=== PATIENT | male | born 1950 | race Caucasian/White ===

== ENCOUNTER → 2021-04-12 00:36 | Outpatient (CLI) | payer MEDICARE, BC, SELFPAY ==
[2021-04-12 23:32] LABS: SARS-CoV-2 RNA PCR Negative
== END ==
PROVIDERS: PCP Family Medicine; Visit Provider Internal Medicine Gastroenterology
DX: Z01.812 Encounter for preprocedural laboratory examination (principal); Z20.822 Contact with and (suspected) exposure to COVID-19
CPT/HCPCS: C9803; U0003; U0005

== ENCOUNTER 2021-04-15 01:23 | Day surgery (SDC) | payer MEDICARE, BC, SELFPAY ==
[2021-04-03 15:43] VITALS: BMI 31.8
[2021-04-15 07:02] VITALS: BP 153/77; PULSE 93; RESP 18; TEMP 36.2; O2SAT 99; BMI 33.3
--- NOTE | 2021-04-15 07:21 | WPDANESEPPF ---
Anes - Initial Pre Proc Eval Procedure: Operation Date: 04/15/21 08:15 Proposed Procedures p Screening Colonoscopy - Ed Cortez MD Date/Time: 04/15/21 07:21 Surgeon: Ed Cortez MD Pre Op Diagnosis: neoplasm screening Patient Data Age: 70 Gender: M Height: 1.73 m Weight: 99.3 kg Last Vital Signs Temp 36.2 C L 04/15/21 07:02 Pulse 93 04/15/21 07:02 Resp 18 04/15/21 07:02 BP 153/77 H 04/15/21 07:02 Pulse Ox 99 04/15/21 07:02 Allergies Allergy/AdvReac Type Severity Reaction Status Date / Time lisinopril Allergy Unknown cough Verified 04/15/21 07:00 Home Medications Medication Instructions Recorded Confirmed Type semaglutide 0.5 mg SUB-Q WEEKLY #9 ml 06/26/20 04/03/21 Rx blood-glucose meter #1 each 06/27/20 03/04/21 Rx blood sugar diagnostic #100 each 07/01/20 03/04/21 Rx lancets 33 gauge #100 each 07/01/20 03/04/21 Rx telmisartan 80 1 tablet PO DAILY #90 tablet 08/26/20 04/03/21 Rx mg-hydrochlorothiazide 12.5 mg tablet pen needle, diabetic 31 gauge x #200 ea 10/29/20 03/04/21 Rx 3/16 insulin detemir U-100 100 unit/mL 100 unit SUB-Q DAILY 90 Days #90 ml 12/02/20 04/03/21 Rx (3 mL) subcutaneous pen aspirin 81 mg tablet,delayed 81 mg PO DAILY 03/04/21 04/03/21 History release fluticasone propionate 50 2 spray INTRANASAL DAILY #20 ml 03/04/21 04/03/21 Rx mcg/actuation nasal spray,suspension glimepiride 4 mg tablet 8 mg PO QAM #180 tablet 03/04/21 04/03/21 Rx simvastatin 40 mg tablet 40 mg PO DAILY #90 tablet 03/05/21 04/03/21 Rx metformin 500 mg PO BID 04/03/21 04/03/21 History Patient hx anesthesia problems: none Family hx anesthesia problems: none PMFSH Past Medical History Medical History (Updated 04/14/21 @ 08:28 by Oscar Mcclain DO) Chronic kidney disease, stage 3 (moderate) Essential (primary) hypertension Mixed hyperlipidemia Type 2 diabetes mellitus with diabetic neuropathy, with long-term current use of insulin Family History Family History Mother Family history of cardiovascular disease Acute myocardial infarction Father Family history of throat cancer Other Diabetes mellitus Social History Social History (Updated 03/04/21 @ 09:00 by Radha Stevenson CMA) Second hand tobacco smoke exposure: No Alcohol intake: never Substance use: never Substance use type: does not use Living arrangements: with family Gender identity (if verbalized by the patient): Male Spiritual care concerns: No Anes - Eval Final PreProcedure Day of Procedure 04/15/21 07:21 Patient weight: obese Heart: regular rate and rhythm Lungs: clear to auscultation and normal air movement Airway: Mallampati scale class II Neurological: alert and oriented Last oral intake: >/= 8 hours ASA classification: III Emergent: no Anesthetic plan: proceed Anesthesia type and monitoring: general GIVS and standard monitoring Informed Consent: The patient's anesthetic plan and its attendant risks and benefits were discussed with the patient/family/POA. Questions were solicited and answers provided to the satisfaction of the patient/family/POA.
[2021-04-15 07:22] LABS: Glucose Point of Care 217 (65-105)
[2021-04-15] MEDS: LACTATED RINGERS 1,000 ML 150 ML IV CONT (07:27)
--- NOTE | 2021-04-15 07:51 | WPDGICN ---
Assessment and Plan Assessment and plan (1) Encounter for screening colonoscopy: Code(s): Z12.11 - Encounter for screening for malignant neoplasm of colon Status: Acute Assessment and Plan: Patient presents for screening colonoscopy. Last exam was 11 years ago. Further recommendations will be given after endoscopy. GI Consult Note Consult date/time: 04/15/21 07:51 HPI: Jean Fry is a 70 year old male presents for screening colonoscopy. Patient's last colonoscopy 11 years ago was unremarkable. Patient reports his current weight appetite bowel movements are normal. He denies abdominal pain. He has had no bleeding. Family history noncontributory. Recent stool Hemoccult negative. CBC has remained stable. Review of Systems Review of Systems: All systems reviewed & are unremarkable except as noted in HPI and below PMFSH Past Medical History Medical History (Updated 04/15/21 @ 07:52 by Ed Cortez MD) Chronic kidney disease, stage 3 (moderate) Essential (primary) hypertension Mixed hyperlipidemia Type 2 diabetes mellitus with diabetic neuropathy, with long-term current use of insulin Family History Family History Mother Family history of cardiovascular disease Acute myocardial infarction Father Family history of throat cancer Other Diabetes mellitus Social History Social History (Updated 03/04/21 @ 09:00 by Radha Stevenson CMA) Second hand tobacco smoke exposure: No Alcohol intake: never Substance use: never Substance use type: does not use Living arrangements: with family Gender identity (if verbalized by the patient): Male Spiritual care concerns: No Meds Home Medications and Allergies Home Medications Medication Instructions Recorded Confirmed Type semaglutide 0.5 mg SUB-Q WEEKLY #9 ml 06/26/20 04/03/21 Rx blood-glucose meter #1 each 06/27/20 03/04/21 Rx blood sugar diagnostic #100 each 07/01/20 03/04/21 Rx lancets 33 gauge #100 each 07/01/20 03/04/21 Rx telmisartan 80 1 tablet PO DAILY #90 tablet 08/26/20 04/03/21 Rx mg-hydrochlorothiazide 12.5 mg tablet pen needle, diabetic 31 gauge x #200 ea 10/29/20 03/04/21 Rx 3/16 insulin detemir U-100 100 unit/mL 100 unit SUB-Q DAILY 90 Days #90 ml 12/02/20 04/03/21 Rx (3 mL) subcutaneous pen aspirin 81 mg tablet,delayed 81 mg PO DAILY 03/04/21 04/03/21 History release fluticasone propionate 50 2 spray INTRANASAL DAILY #20 ml 03/04/21 04/03/21 Rx mcg/actuation nasal spray,suspension glimepiride 4 mg tablet 8 mg PO QAM #180 tablet 03/04/21 04/03/21 Rx simvastatin 40 mg tablet 40 mg PO DAILY #90 tablet 03/05/21 04/03/21 Rx metformin 500 mg PO BID 04/03/21 04/03/21 History Allergies Allergy/AdvReac Type Severity Reaction Status Date / Time lisinopril Allergy Unknown cough Verified 04/15/21 07:00 Vital Signs Vital Signs - 24 hr 04/15/21 07:02 Temperature 97.1 F L Pulse Rate 93 Respiratory Rate 18 Blood Pressure 153/77 H Pulse Oximetry 99 Exam Narrative: Exam Narrative: Physical exam reveals patient be alert. Vital signs stable. HEENT exam is unremarkable. Patient is anicteric. Lungs are clear to auscultation and percussion. Heart is without murmur or extra sounds. Abdominal exam bowel sounds are present soft nontender with no organomegaly. Digital external rectal exam is normal.
[2021-04-15 08:22] VITALS: BP 114/74; PULSE 94; RESP 16; O2SAT 99
[2021-04-15 08:32] VITALS: BP 127/97; PULSE 85; RESP 19; O2SAT 99
[2021-04-15 08:42] VITALS: BP 137/85; PULSE 87; RESP 24; O2SAT 100
== END 2021-04-15 08:53 | disposition home or self-care (01) ==
PROVIDERS: PCP Family Medicine; Visit Provider Internal Medicine Gastroenterology
PROC: 0DJD8ZZ Inspection of Lower Intestinal Tract, Via Natural or Artificial Opening Endoscopic (ICD-10-PCS; CPT 45378; principal; 2021-04-15 08:15)
DX: Z12.11 Encounter for screening for malignant neoplasm of colon (principal); D12.8 Benign neoplasm of rectum; I12.9 Hypertensive chronic kidney disease with stage 1 through stage 4 chronic kidney disease, or unspecified chronic kidney disease; N18.30 Chronic kidney disease, stage 3 unspecified; E11.22 Type 2 diabetes mellitus with diabetic chronic kidney disease; E11.42 Type 2 diabetes mellitus with diabetic polyneuropathy; E78.2 Mixed hyperlipidemia; Z79.4 Long term (current) use of insulin; Z79.84 Long term (current) use of oral hypoglycemic drugs; E66.9 Obesity, unspecified; Z68.33 Body mass index [BMI] 33.0-33.9, adult
CPT/HCPCS: 45385; 82948; 88305; J2704; J7120

== ENCOUNTER 2022-05-05 11:28 | Emergency (ER) | payer MEDICARE, BC, SELFPAY ==
[2022-05-05 11:56] VITALS: BP 132/78; PULSE 93; RESP 16; TEMP 37.1; O2SAT 99
--- NOTE | 2022-05-05 12:03 | ED.SKABFB ---
HPI - Skin/Abscess/Foreign Bdy General Chief complaint: Skin/Abscess/Foreign Body Stated complaint: Rash Time Seen by Provider: 05/05/22 12:03 Source: patient, RN notes reviewed and old records reviewed Mode of arrival: ambulatory Limitations: no limitations History of Present Illness HPI narrative: 71-year-old male presents to the [facility] with complaints of a rash from the waist up for the last 2 to 3 weeks. Describes it as a very itchy, worse at night. No new creams, ointments, lotions or detergents. Denies any facial swelling. No lip or tongue swelling. MD complaint: rash Onset (ago): week(s) (At least 2 weeks) Related Data Home Medications Medication Instructions Recorded Confirmed aspirin 81 mg tablet,delayed 81 mg PO DAILY 03/04/21 05/05/22 release Allergies Allergy/AdvReac Type Severity Reaction Status Date / Time lisinopril Allergy Unknown cough Verified 05/05/22 11:34 Review of Systems Review of Systems: All systems reviewed & are unremarkable except as noted in HPI and below Constitutional: Constitutional: Reports no additional constitutional complaints, Denies chills, Denies fever(s), Denies headache(s) and Denies weakness Eyes: Eyes: Reports no additional eye complaints and Denies change in vision ENT: Reports system reviewed and no additional complaints, except as documented, Denies dysphagia, Denies dizziness, Denies headache(s), Denies nasal congestion and Denies sore throat Cardiovascular: Cardiovascular: Reports no additional cardiovascular complaints, Denies chest pain, Denies syncope and Denies dyspnea Respiratory: Respiratory: Reports no additional respiratory complaints, Denies chest congestion, Denies cough, Denies dyspnea and Denies wheezing Gastrointestinal: Gastrointestinal: Denies dysphagia Musculoskeletal: Musculoskeletal: Reports no additional musculoskeletal complaints and Denies numbness Integumentary/Breasts: Skin/Breast: Reports as per HPI and Reports rash Neurologic: Reports system reviewed and no additional complaints, except as documented, Denies dizziness, Denies syncope, Denies headache(s), Denies focal weakness, Denies numbness and Denies weakness Psychiatric: Psychiatric: Reports no additional psychiatric complaints Allergic/Immunologic: Allergic/Immunologic: Reports no additional allergic/immunologic complaints and Denies wheezing PMFSH Past Medical History Medical History Chronic kidney disease, stage 3 (moderate) Essential (primary) hypertension Mixed hyperlipidemia Type 2 diabetes mellitus with diabetic neuropathy, with long-term current use of insulin Family History Family History Mother Family history of cardiovascular disease Acute myocardial infarction Father Family history of throat cancer Other Diabetes mellitus Social History Social History Second hand tobacco smoke exposure: No Alcohol intake: never Substance use: never Substance use type: does not use Gender identity (if verbalized by the patient): Male Spiritual care concerns: No Comments At the time of my signature, I reviewed and agree with the nursing past medical, surgical, social, and family history. There is no relevant family history pertinent to the patient complaint. Exam Const: General: healthy appearing, no acute distress and alert Nutritional Appearance: well nourished Orientation/consciousness: patient oriented x3 Limitations: no limitations HENMT: Head: normal to inspection Ears: external ears normal Eyes: Pupils: Equal, round and reactive pupils present Neck: Neck: normal visual inspection, no lymphadenopathy and no meningeal signs Chest: Chest palpation & inspection: normal inspection of the chest Resp: Effort & Inspection: normal respiratory effort Auscultation: clear to auscultati
== END 2022-05-05 12:20 | disposition home or self-care (01) ==
PROVIDERS: Emergency Provider Nurse Practitioner; PCP Physician Assistant
DX: L30.9 Dermatitis, unspecified (principal); L53.9 Erythematous condition, unspecified; I12.9 Hypertensive chronic kidney disease with stage 1 through stage 4 chronic kidney disease, or unspecified chronic kidney disease; E11.22 Type 2 diabetes mellitus with diabetic chronic kidney disease; N18.30 Chronic kidney disease, stage 3 unspecified; Z79.4 Long term (current) use of insulin; E78.2 Mixed hyperlipidemia; Z79.82 Long term (current) use of aspirin
CPT/HCPCS: 99213; G0463

== ENCOUNTER 2022-05-23 10:15 | Emergency (ER) | payer MEDICARE, BC, SELFPAY ==
[2022-05-23 10:25] VITALS: BP 135/67; PULSE 77; RESP 16; TEMP 36.3; O2SAT 100
[2022-05-23 10:54] LABS: Glucose Point of Care 121 mg/dl (65-105)
--- NOTE | 2022-05-23 10:57 | ED.NAVMDI ---
HPI - Nausea/Vomiting/Diarrhea General Chief complaint: Nausea/Vomiting/Diarrhea Stated complaint: Nausea Time Seen by Provider: 05/23/22 10:57 Source: patient Mode of arrival: ambulatory Limitations: no limitations History of Present Illness HPI Narrative: 71 yo M presents with c/o N/V, fatigue, bodyaches for 3 to 5 days. No vomiting today. States he is feeling somewhat better today. Did yardwork yesterday with his . States he is drinking lots of water. Denies headache. No ABD or back pain. Having normal BMs. Afebrile. No urinary symptoms. Has been able to eat and keep down solid food today. All systems reviewed and negative except as noted above. Related Data Home Medications Medication Instructions Recorded Confirmed aspirin 81 mg tablet,delayed 81 mg PO DAILY 03/04/21 05/05/22 release Allergies Allergy/AdvReac Type Severity Reaction Status Date / Time lisinopril Allergy Unknown cough Verified 05/05/22 11:34 Review of Systems Review of Systems: CONSTITUTIONAL: Denies fever, chills, or sweats. Reports fatigue EYES: Denies visual changes, redness, or discharge. ENT: Denies rhinorrhea, congestion, sore throat, or otalgia. CARDIOVASCULAR: Denies chest pain, palpitations, or edema. RESPIRATORY: Denies cough or dyspnea. GASTROINTESTINAL: Denies abdominal pain. Reports nausea, vomiting. Denies diarrhea. GENITOURINARY: Denies dysuria or hematuria. SKIN: Denies rash or itching. MUSCULOSKELETAL: Denies back pain, joint pain. Reports myalgia. NEUROLOGIC: Denies headache, numbness, or weakness. PSYCHIATRIC: Denies anxiety or depression. All other systems reviewed are negative, except as documented in HPI. [facility] Past Medical History Medical History Chronic kidney disease, stage 3 (moderate) Essential (primary) hypertension Mixed hyperlipidemia Type 2 diabetes mellitus with diabetic neuropathy, with long-term current use of insulin Family History Family History Mother Family history of cardiovascular disease Acute myocardial infarction Father Family history of throat cancer Other Diabetes mellitus Social History Social History Second hand tobacco smoke exposure: No Alcohol intake: never Substance use: never Substance use type: does not use Gender identity (if verbalized by the patient): Male Spiritual care concerns: No Comments At time of signature, agree with nursing past medical, surgical, social and family history. There is no relevant family history pertinent to the presenting complaint. Exam Narrative: GENERAL: This is a well-nourished, well-developed patient. Patient sitting up on exam table, does not appear in any distress, talkative. HEAD: normocephalic, atraumatic. EYES: PERRL. Sclera clear/white. Vision is grossly intact. EARS: External ears normal, auditory canals clear and without drainage, TMs normal without perforation. Hearing grossly intact. NOSE: External nose normal with no obvious nasal discharge, nares without redness, no rhinorrhea. THROAT: Mucous membranes moist, posterior pharynx clear. NECK: Neck supple, non-tender without lymphadenopathy, masses or thyromegaly. CARDIOVASCULAR: Regular rate and rhythm without murmurs, gallops, or rubs. RESPIRATORY: Clear to auscultation. Breath sounds equal bilaterally. No wheezes, rales, or rhonchi. GASTROINTESTINAL: Abdomen soft, non-tender, nondistended. Bowel sounds are active. No hepato-splenomegaly, or palpable masses. No guarding. SKIN: warm, Dry, intact with no suspicious lesions or rash, good texture and turgor. NEURO: awake, alert, and oriented to person, place and time. There were no obvious focal neurologic abnormalities. EXTREMITIES: No joint tenderness, effusion, or edema noted. Course Course Level of Care: Express Care Visit Vital Signs Vital si
--- NOTE | 2022-05-23 11:39 | PC.NURSE ---
pt had emesis 300ml. provider informed. pt denies abd pain or bloating. provider at bedside.
== END 2022-05-23 11:51 | disposition home or self-care (01) ==
PROVIDERS: Emergency Provider Nurse Practitioner Family; PCP Physician Assistant
DX: B34.9 Viral infection, unspecified (principal); Z20.822 Contact with and (suspected) exposure to COVID-19; I12.9 Hypertensive chronic kidney disease with stage 1 through stage 4 chronic kidney disease, or unspecified chronic kidney disease; E11.22 Type 2 diabetes mellitus with diabetic chronic kidney disease; N18.30 Chronic kidney disease, stage 3 unspecified; E78.2 Mixed hyperlipidemia
CPT/HCPCS: 81003; 82948; 87426; 87804; 99213; C9803; G0463

== ENCOUNTER 2022-10-29 13:11 | Outpatient (CLI) | payer MEDICARE, BC, SELFPAY | END 2022-10-29 13:12 | disposition home or self-care (01) | LOC: ANHAUDIO 13:12 | PROVIDERS: PCP Family Medicine; Visit Provider Physician Assistant | DX: H90.3 Sensorineural hearing loss, bilateral (principal) | CPT/HCPCS: 92557; 92567 ==

== ENCOUNTER 2022-11-18 09:00 | Outpatient (RCR) | payer MEDICARE, BC, SELFPAY | END 2022-11-18 23:59 | disposition home or self-care (01) | LOC: ANHAUDIO 09:00 | PROVIDERS: PCP Family Medicine; Visit Provider Family Medicine | DX: Z46.1 Encounter for fitting and adjustment of hearing aid (principal) | CPT/HCPCS: 99199; V5261 ==

== ENCOUNTER 2024-03-04 14:21 | Emergency (ER) | payer MEDICARE, BC, SELFPAY ==
[2024-03-04 14:32] VITALS: BP 162/76; PULSE 86; RESP 16; TEMP 36.6; O2SAT 98
--- NOTE | 2024-03-04 14:39 | ED.EAR ---
HPI - Ear Problem General Chief complaint: Ear Stated complaint: Right Ear Foriegn Object Time Seen by Provider: 03/04/24 14:51 Source: patient Mode of arrival: ambulatory Limitations: no limitations History of Present Illness HPI Narrative: Mr. Glo jane is a 73-year-old male patient presenting to the clinic today with complaints of the rubber tip of his hearing aid stuck in his ear. He reports that it became stuck last night he is not able to get it out. Denies any other concerns Related Data Home Medications Medication Instructions Recorded Confirmed aspirin 81 mg tablet,delayed 81 mg PO DAILY 03/04/21 12/07/23 release travoprost 0.004 % eye drops 1 drp EACH EYE 04/06/23 12/07/23 Allergies Allergy/AdvReac Type Severity Reaction Status Date / Time lisinopril Allergy Unknown cough Verified 03/04/24 14:27 Review of Systems Review of Systems: Pertinent positives per HPI. Patient denies any fever, chills, rash, headache, visual changes, dizziness, cough, runny nose, sore throat, shortness of breath, chest pain, palpitations, nausea, vomiting, diarrhea, constipation, abdominal pain, or any urinary issues. [facility] Past Medical History Medical History COVID nov 2022 Iron deficiency anemia Family History Family History Mother Family history of cardiovascular disease Acute myocardial infarction Father Family history of throat cancer Other Diabetes mellitus Social History Social History Smoking status: Never smoker Second hand tobacco smoke exposure: No Alcohol intake: never Substance use: never Substance use type: does not use Do You Feel Safe in your Home?: Yes Lack of Transportation: No Lack of Food: Never True Current Housing: I Have Housing Concerned About Future Housing: No Difficulty Paying Gas/Electric Bills: No Difficulty Paying for Meds: No Currently Unemployed: No Education: Trade/Vocational Certificate Difficulty w/ Childcare or Family Care: No Living arrangements: with family Occupation/Education: retired Gender identity (if verbalized by the patient): Male Spiritual care concerns: No Comments At the time of my signature, I reviewed and agree with the nursing past medical, surgical, social, and family history. There is no relevant family history pertinent to the patient complaint. Exam Narrative: General: Well-developed, well nourished, in no apparent distress Head: Normocephalic, atraumatic Eyes: Pupils equally round and reactive to light bilaterally, EOM intact, sclera and conjunctive clear, no discharge, lids normal Ears: TMs intact and clear, rubber tip from hearing aid stuck in the right ear canal, successfully removed using a alligator forceps, ear canals clear, no drainage, grossly hearing normal. Nose: Nares patent, no discharge, no inflammation, no sinus tenderness. Mouth: Oropharynx without lesions or masses, good dentition, MMM. Neck: Supple, trachea midline, no enlargement of anterior or posterior cervical nodes, no thyroid masses or goiter palpable. Cardio: Regular rate and rhythm, s1 and s2 normal, no murmur appreciated. Resp: Clear to auscultation bilaterally anteriorly and posteriorly, no rhonchi, rales, wheezing or rubs Course Course Emergency Course: Portions of this record may have been created with voice recognition software. Level of Care: Express Care Visit Vital Signs Vital signs: Vital Signs Temperature 36.6 C 03/04/24 14:32 Pulse Rate 86 03/04/24 14:32 Respiratory Rate 16 03/04/24 14:32 Blood Pressure 162/76 H 03/04/24 14:32 Pulse Oximetry 98 03/04/24 14:32 Oxygen Delivery Room Air 03/04/24 14:32 Temperature 36.6 C 03/04/24 14:32 Pulse Rate 86 03/04/24 14:32 Respiratory Rate 16 03/04/24 14:
== END 2024-03-04 14:44 | disposition home or self-care (01) ==
PROVIDERS: Emergency Provider Nurse Practitioner Family; PCP Family Medicine
DX: T16.1XXA Foreign body in right ear, initial encounter (principal); W44.G1XA Audio device entering into or through a natural orifice, initial encounter; Z86.16 Personal history of COVID-19; Z79.82 Long term (current) use of aspirin
CPT/HCPCS: 69200; 99212; G0463

== ENCOUNTER 2024-07-10 13:58 | Emergency (ER) | payer MEDICARE, BC, SELFPAY ==
--- NOTE | 2024-07-10 14:00 | ED.URI ---
HPI - URI/Sore Throat General Chief Complaint: Upper Respiratory Infection Stated Complaint: Cough/Sore Throat Time Seen by Provider: 07/10/24 14:16 Source: patient and RN notes reviewed Mode of arrival: ambulatory Limitations: no limitations History of Present Illness HPI Narrative: 73-year-old male presents with concern of for cough for 6 days. Reports the cough is productive and he can feel rattling in his chest. He reports he got the cough after he came back from vacation in [place]. He reports cough keeps him awake at night. Reports sweats MD elicited complaint: cough Related Data Home Medications Medication Instructions Recorded Confirmed aspirin 81 mg tablet,delayed 81 mg PO DAILY 03/04/21 07/10/24 release Allergies Allergy/AdvReac Type Severity Reaction Status Date / Time lisinopril Allergy Unknown cough Verified 07/10/24 13:59 Review of Systems Review of Systems: CONSTITUTIONAL: Denies malaise, chills, fever. Reports sweats EYES: Denies visual changes, redness, or discharge. ENT: Reports rhinorrhea, congestion, sinus pain, otalgia and sore throat. CARDIOVASCULAR: Denies chest pain, palpitations, or edema. RESPIRATORY: Reports productive cough. Denies dyspnea. GASTROINTESTINAL: Denies abdominal pain, nausea, vomiting, diarrhea SKIN: Denies rash or itching. MUSCULOSKELETAL: Denies myalgia. NEUROLOGIC: Denies headache. All systems reviewed & are unremarkable except as noted in HPI and below PMFSH Past Medical History Medical History COVID nov 2022 Iron deficiency anemia Family History Family History Mother Family history of cardiovascular disease Acute myocardial infarction Father Family history of throat cancer Other Diabetes mellitus Social History Social History Smoking status: Never smoker Second hand tobacco smoke exposure: No Alcohol intake: never Substance use: never Substance use type: does not use Do You Feel Safe in your Home?: Yes Lack of Transportation: No Lack of Food: Never True Current Housing: I Have Housing Concerned About Future Housing: No Difficulty Paying Gas/Electric Bills: No Difficulty Paying for Meds: No Currently Unemployed: No Education: Trade/Vocational Certificate Difficulty w/ Childcare or Family Care: No Living arrangements: with family Occupation/Education: retired Gender identity (if verbalized by the patient): Male Spiritual care concerns: No Comments At time of signature, agree with nursing past medical, surgical, social and family history. There is no relevant family history pertinent to the presenting complaint Exam Narrative: GENERAL: Well-appearing, well-nourished, and in no acute distress. HEAD: Normocephalic EYES: PERRLA, conjunctivae clear ENT: Nares clear. Mucous membranes moist. TM pearly celestin with dull light reflex bilaterally; no tragal tenderness. Oropharynx not erythematous without lesions. Tonsils not enlarged and without exudate, no drooling, no hoarseness, no trismus, uvula midline. NECK: Supple. No lymphadenopathy CHEST: Clear to auscultation, breath sounds equal. No wheezing, rhonchi, rales, or stridor. No respiratory distress, speaks in full sentences. Cough noted HEART: Regular rate and rhythm. No murmur heard. SKIN: Warm, dry, no rash. NEURO: Alert and oriented x3. PSYCH: Normal mood and affect Course Course Emergency Course: Patient is aware of diagnosis, understands and agrees to treatment plan. Anticipatory guidance given. Patient agrees to follow-up as directed and is aware of reasons to seek care at the emergency department. Portions of this record may have been created with voice recognition software Level of Care: Express Care Visit Vital Signs Vital signs: Reviewed. ZACK RAMIREZ/Florin Grimm
[2024-07-10 14:13] VITALS: BP 166/71; PULSE 85; RESP 18; TEMP 36.1; O2SAT 100
== END 2024-07-10 14:30 | disposition home or self-care (01) ==
PROVIDERS: Emergency Provider Nurse Practitioner; PCP Family Medicine
DX: J22 Unspecified acute lower respiratory infection (principal); Z79.82 Long term (current) use of aspirin
CPT/HCPCS: 99213; G0463

== ENCOUNTER 2025-02-14 13:12 | Emergency (ER) | payer MEDICARE, BC, SELFPAY ==
--- NOTE | ~2025-02-14 | XR_ITS ---
Clinical Indication: Cough PA and lateral views of the chest: Comparison: None Findings: The lungs are clear, without evidence of focal consolidation or pleural effusion. Cardiome diastinal silhouette is within normal limits. Bones and soft tissues are unremarkable. Impression: Normal chest. Reviewed, dictated and finalized at location . Impression: Normal chest.
[2025-02-14 13:19] VITALS: BP 172/84; PULSE 89; RESP 18; TEMP 36.5; O2SAT 100
[2025-02-14 13:30] VITALS: PULSE 89; RESP 18; O2SAT 100
--- NOTE | 2025-02-14 13:48 | ED.URI ---
HPI - URI/Sore Throat General Chief Complaint: Upper Respiratory Infection Stated Complaint: Sinus Time Seen by Provider: 02/14/25 13:26 Source: patient, RN notes reviewed and old records reviewed Mode of arrival: ambulatory Limitations: no limitations History of Present Illness HPI Narrative: Patient presents today with a 1 month history of cough that is occasionally productive. He initially had influenza on 01/06/2025, 10 days later he went back to the same Urgent Care and was diagnosed with bronchitis and given prescriptions for azithromycin, benzonatate, and 10 mg prednisone once a day for 5 days. He does not feel that these medications helped him much. Currently denies fever, shortness of breath. States he does have chronic rhinorrhea for which he uses Flonase. No history of asthma or COPD. Blood sugars have been well controlled recently that he has had to go down on his insulin dose. He is a nonsmoker. He has tried no [id number] medication for his current symptoms. Related Data Home Medications ?Medication ?Instructions ?Recorded ?Confirmed ?Last Taken ?Type aspirin 81 mg tablet,delayed 81 mg PO DAILY 03/04/21 12/05/24 04/14/21 History release travoprost 0.004 % eye drops drp EACH EYE 12/05/24 12/05/24 Unknown History albuterol sulfate 90 mcg/actuation inhalation 02/14/25 Unknown History aerosol inhaler Allergies Allergy/AdvReac Type Severity Reaction Status Date / Time lisinopril Allergy Unknown cough Verified 02/14/25 13:27 Review of Systems Review of Systems: CONSTITUTIONAL: Denies body aches, fever, chills, or sweats. EYES: Denies visual changes, redness, or discharge. ENT: Denies rhinorrhea, congestion, sore throat, or otalgia. CARDIOVASCULAR: Denies chest pain, palpitations, or edema. RESPIRATORY: Denies dyspnea.+ cough GASTROINTESTINAL: Denies abdominal pain, nausea, vomiting, or diarrhea. GENITOURINARY: Denies dysuria or hematuria. SKIN: Denies rash, itching, or wounds. MUSCULOSKELETAL: Denies back pain, joint pain, or myalgia. NEUROLOGIC: Denies headache, numbness, tingling, or weakness. PSYCH: Denies depression or anxiety. [facility] Past Medical History Medical History COVID nov 2022 Iron deficiency anemia Family History Family History Mother Family history of cardiovascular disease Acute myocardial infarction Father Family history of throat cancer Other Diabetes mellitus Social History Social History Smoking status: Never smoker Second hand tobacco smoke exposure: No Alcohol intake: never Substance use: never Substance use type: does not use Do You Feel Safe in your Home?: Yes Lack of Transportation: No Lack of Food: Never True Current Housing: I Have Housing Concerned About Future Housing: No Difficulty Paying Gas/Electric Bills: No Difficulty Paying for Meds: No Currently Unemployed: No Education: Trade/Vocational Certificate Difficulty w/ Childcare or Family Care: No Living arrangements: with family Occupation/Education: retired Gender identity (if verbalized by the patient): Male Spiritual care concerns: No Comments At time of signature, I have reviewed and agree with nursing past medical, surgical, social and family history unless otherwise noted. Please see nursing chart for further information. There is no relevant family history pertinent to the presenting complaint Exam Narrative: GENERAL: Well-appearing, well-nourished, and in no acute distress. HEAD: Normocephalic, atraumatic. EYES: EOMI. No redness or drainage. Conjunctivae normal. ENT: Mucous membranes pink and moist. Nares clear. No rhinorrhea. TMs normal bilaterally. Throat normal. Uvula midline. NECK: Normal AROM. Supple. No lymphadenopathy. CHEST: No respiratory distress. Clear to auscultation. HEART: Regular rate and rhythm. No murmur appreciated. EXTREMITIES: Normal range of motion. No edema. SKIN: Warm, dry, no rash. Capillary refill normal. Normal skin turgor. NEURO: No focal deficits. Alert and oriented x3. Gait steady. PSYCH: Normal affect. No signs of depression or anxiety. Course Course Level of Care: Express Care Visit Vital Signs Vital signs: Vital Signs Temperature 97.7 F 02/14/25 13:19 Pulse Rate 89 02/14/25 13:19 Respiratory Rate 18 02/14/25 13:19 Blood Pressure 172/84 H 02/14/25 13:19 Pulse Oximetry 100 02/14/25 13:19 Oxygen Delivery Room Air 02/14/25 13:19 Temperature 97.7 F 02/14/25 13:19 Pulse Rate 89 02/14/25 13:30 Respiratory Rate 18 02/14/25 13:30 Blood Pressure 172/84 H 02/14/25 13:19 Pulse Oximetry 100 02/14/25 13:30 Oxygen Delivery Room Air 02/14/25 13:19 Reviewed MDM - URI/Sore Throat MDM Narrative Medical decision making narrative: Chest x-ray negative. Symptoms likely due to bronchitis/post infectious cough. Will increase prednisone to 30mg for 5 days. Recommend PCP follow-up if symptoms persist. Anticipatory guidance given. Differential Diagnosis Differential diagnosis: Likely upper respiratory infection, otitis media, viral infection, bronchitis and other (Pneumonia) Imaging Data Radiologist's impression: ITS Impressions Chest X-Ray 02/14/25 13:59 Impression: Normal chest. Critical Care Time Critical Care Time Critical Care Time: No Discharge Plan Discharge Clinical Impression: Bronchitis Patient Disposition: Home, Self-Care Condition: Stable Instructions: Acute Bronchitis (ED) Additional Instructions: Your chest x-ray is negative for pneumonia. Please take the prednisone as directed. You may take an [id number]-kca-jenpyqy cough medicine such as Mucinex to help break up any chest congestion. Follow-up with your PCP in 4-5 days if symptoms are not improving, or sooner if symptoms worsen. Your blood pressure was elevated above 120/80 today at Urgent Care. This puts you above the threshold for follow up. Please schedule a followup visit with your personal physician as soon as possible, for further evaluation and treatment. Even blood pressure exceeding 120/80 may indicate pre-hypertension. Patient Language: Bahamian Prescriptions: New prednisone 10 mg tablet 30 mg PO DAILY 5 Days Qty: 15 0RF No Action albuterol sulfate 90 mcg/actuation HFA aerosol inhaler INHALATION aspirin 81 mg tablet,delayed release (DR/EC) 81 mg PO DAILY travoprost 0.004 % drops EACH EYE (DME) lancets [OneTouch Delica Plus Lancet] 33 gauge misc See Rx Instructions .ROUTE .MEDSUPPLY Qty: 100 3RF Rx Instructions: As directed Ozempic 2 mg/dose (8 mg/3 mL) pen injector 2 mg subcut WEEKLY Qty: 9 3RF simvastatin 40 mg tablet See Rx Instructions .ROUTE .COMPLEX Qty: 90 1RF Dose Instruction: TAKE 1 TABLET BY MOUTH DAILY Rx Instructions: TAKE 1 TABLET BY MOUTH DAILY insulin glargine [Basaglar KwikPen U-100 Insulin] 100 unit/mL (3 mL) insulin pen See Rx Instructions subcut .COMPLEX Qty: 90 3RF Rx Instructions: subcutaneously: 45 units q a.m., 50 units q hs metformin 500 mg tablet See Rx Instructions .ROUTE .COMPLEX Qty: 360 1RF Dose Instruction: TAKE 2 TABLETS BY MOUTH TWICE DAILY Rx Instructions: TAKE 2 TABLETS BY MOUTH TWICE DAILY telmisartan 80 mg tablet 80 mg PO DAILY Qty: 90 1RF Follow-up/Referrals: Angelica Pandya MD [Primary Care Provider] - Time of Disposition: 14:20
== END 2025-02-14 14:30 | disposition home or self-care (01) ==
PROVIDERS: Emergency Provider Nurse Practitioner; PCP Family Medicine
DX: J40 Bronchitis, not specified as acute or chronic (principal); Z86.16 Personal history of COVID-19; Z79.82 Long term (current) use of aspirin; E11.9 Type 2 diabetes mellitus without complications; Z79.4 Long term (current) use of insulin; Z79.84 Long term (current) use of oral hypoglycemic drugs; Z79.85 Long-term (current) use of injectable non-insulin antidiabetic drugs
CPT/HCPCS: 71046; 99213; G0463

== ENCOUNTER 2025-08-15 07:34 | Outpatient (CLI) | payer MEDICARE, BC, SELFPAY ==
--- OUTSIDE RECORDS SUMMARY | 2010-10-22 09:00 | XMS_ITS | Continuity of Care Document ---
Author Organization [facility] Address [address] [place] [address] Phone Care Team Providers Care Human Resources Operations Coordinator Name Role Phone Juarez Jacobo Unavailable Unavailable [...] Copied on Encounter Office/outpat ient Visit, Est [facility], [address], [place], [place], [address], [place] tel:[phone] [facility] No Information 0 Odalis Pizarro. [address] , [address], [place], [address], [place]. tel:[phone] Referring Provider: [facility] Bust[address], [place], [address]. tel:[phone] [facility], [address], [place], [place], [address], [place] tel:[phone] [facility] No Information Nov-0 8-201 0 Samina Ramirez. [address], [facility], [place]. tel:[phone] Referring Provider: James Williamson, [address], [facility]. tel:[phone] [facility], [address], [place], [place], [address], [place] tel:[phone] [facility] No Information Aug-1 1-201 0 Doisy Edward. [address], [place], [facility], . tel:[phone] [facility], [address], [place], [place], [address], [place] tel:[phone] [facility] No Information Aug-0 6-201 0 Jernigan OD Ed. [address] , [address], [place], [facility], [place]. tel:[phone] [facility], [address], [place], [place], [address], [place] tel:[phone] [facility] No Information Aug-0 5-201 0 Doisy Edward. [address] , [address], [place], [facility], [place]. tel:[phone] Referring Provider: El Parker, [address] [place], [address]. tel:[phone] [facility], [address], [place], [place], [address], [place] tel:[phone] [facility] No Information Aug-0 2-201 0 Samina Ramirez. [address] [place], [address], [place]. tel:[phone] Referring Provider: James Williamson, [address] [place], [address]. tel:[phone] [facility], [address], [place], [place], [address], [place] tel:[phone] [facility] No Information 2 6-201 0 Samina Ramirez. [address], [facility], [place]. tel:[phone] Office/outpat ient Visit, [facility], [address], [place], [place], [address], [place] tel:[phone] [facility] No Information May-2 2-201 0 Odalis Pizarro. [address] [place], [place] [address], [place], [facility], [place]. tel:[phone] Referring Provider: Juarez Del Rio, [facility] [address], [place], [facility]. tel:[phone] [facility], [address] [place] [address] [address], [place], [place], [address], [place] tel:[phone] [facility] No Information 9-201 0 Samina Ramirez. [address], [facility], [place]. tel:[phone] Referring Provider: Rey aguayo, [address], [place], [address]. tel:[phone] [facility], [address], [place], [place], [address], [place] tel:[phone] [facility] No Information Apr- 8-201 0 Stephanie Le. [facility] [address], [place], [facility], [place]. tel:[phone] Referring Provider: Ed Parker OD, [address] [place], [address]. tel:[phone] Family History Family Member Type Diagnosis Age At Onset No Information Payers Payer name Insurance type Covered republican ID Christian ramirez(s) [facility] CI [id number] Mail Handlers Benefit Plan CI [id number] Social History Type Description Quantity Date Captured [...]
--- NOTE | ~2025-08-15 | NM_ITS ---
EXAMINATION: NM julio stress w perfusion DATE: 08/15/2025 10:57 INDICATION: Encounter for preprocedural cardiovascular exam TECHNIQUE: Rest images were obtained following intravenous administration of 10.6 mCi Tc99m tetrofosmin (Myoview). The patient was infused intravenously with Lexiscan (Regadenoson). Then, 31.8 mCi Tc99m tetrofosmin (Myoview) was administered intravenously, and stress images were obtained initially in the supine position with repeat post stress imaging obtained in the prone position. Data was reconstructed into short axis and horizontal and vertical long axis SPECT images. Gated SPECT images were also obtained. COMPARISON: None. FINDINGS: There is is severe nonreversible perfusion defect on the post stress imaging in the prone position involving the apical, apical anterior, apical septal, apical inferior , apical lateral and mid inferior segments. This appears reversible at the apical lateral segment consistent with ischemia, nonreversible at the apical septal and mid inferior segments consistent with infarct and with minimal reversibility at the apical, apical inferior and apical superior segments consistent with infarct with mild superimposed ischemia. Likely artifactual regions of decreased activity at the mid anterior, mid septal and mid inferior segments on the imaging obtained in the supine position which normalizes on the There is normal left ventricular chamber size, wall motion and ejection fraction. Left ventricular ejection fraction measures 53%. IMPRESSION: 1. Severe perfusion defect at the apical and periapical segments consistent with nonreversible infarct at the apical septal and mid inferior segments, infarct with minimal superimposed ischemia at the apical anterior, apical and apical inferior segments and reversible consistent with ischemia without significant infarct at the apical lateral segment. 2. Left ventricular ejection fraction measuring 53%. Reviewed, dictated and finalized at location A. IMPRESSION: 1. Severe perfusion defect at the apical and periapical segments consistent wit h nonreversible infarct at the apical septal and mid inferior segments, infarct with minimal superimposed ischemia at the apical anterior, apical and apical i nferior segments and reversible consistent with ischemia without significant in farct at the apical lateral segment. 2. Left ventricular ejection fraction measuring 53%.
--- NOTE | 2025-08-15 07:39 | EST_ITS ---
Patient Info Name: Jean Fry Age: 74 years : 1950 Gender: Male Ht: 68 in Wt: 210 lbs BSA: 2.17 m2 HR: 89 bpm BP: 143 / 96 mmHg Exam Date: 08/15/2025 7:39 AM Patient Status: O Admit Date: 08/15/2025 Exam Type: CA stress julio w NM A regadenoson stress test was performed. Staff Referring Physician: Anderson Givens DO Attending Provider: Anderson Givens DO Exercise Technologist: Kelsea Ramsey Exercise Physician: Anderson Givens DO Summary 1. 1. Negative lexiscan stress test for ischemic ST changes by ECG criteria. 2. 2. Baseline hypertension. 3. 3. Nuclear scan to follow and will be reported separately. Please correlate with it. 4. 4. Patient informed of the above results. Protocol: Lexiscan Stress ECG Details Stage: REST Duration (min): 0 min : 59 sec HR (bpm): 88 SBP (mmHg): 143 DBP (mmHg): 96 Stage: REST Duration (min): 5 min : 57 sec HR (bpm): 88 SBP (mmHg): 143 DBP (mmHg): 96 Stage: REST Duration (min): 6 min : 57 sec HR (bpm): 94 SBP (mmHg): 143 DBP (mmHg): 96 Stage: STAGE 1 Duration (min): 0 min : 59 sec HR (bpm): 107 SBP (mmHg): 143 DBP (mmHg): 96 Stage: RECOVERY Duration (min): 1 min : 0 sec HR (bpm): 107 SBP (mmHg): 192 DBP (mmHg): 93 Stage: RECOVERY Duration (min): 2 min : 0 sec HR (bpm): 111 SBP (mmHg): 192 DBP (mmHg): 93 Stage: RECOVERY Duration (min): 3 min : 0 sec HR (bpm): 117 SBP (mmHg): 202 DBP (mmHg): 99 Stage: RECOVERY Duration (min): 4 min : 0 sec HR (bpm): 102 SBP (mmHg): 202 DBP (mmHg): 99 Stage: RECOVERY Duration (min): 5 min : 0 sec HR (bpm): 96 SBP (mmHg): 203 DBP (mmHg): 100 Stage: RECOVERY Duration (min): 6 min : 0 sec HR (bpm): 95 SBP (mmHg): 182 DBP (mmHg): 93 Stage: RECOVERY Duration (min): 6 min : 6 sec HR (bpm): 95 SBP (mmHg): 182 DBP (mmHg): 93 Rest HR: 94 bpm Peak HR: 119 bpm Rest Sys BP: 143 mmHg Peak Sys BP: 203 mmHg Max Pred HR: 148 bpm % Max Pred HR: 80 % Target HR: 126 bpm Max RPP: 24,157 bpm*mmHg Termination Reason: Completed protocol Cardiac Symptoms: Shortness of breath Total Time: 1 min : 0 sec Rest Polanco BP: 96 mmHg Peak Polanco BP: 100 mmHg Total Dose: 0.4 mg Resting ECG Sinus rhythm, RBBB. Stress ECG No ST changes. Arrhythmias None. Report Signatures
--- NOTE | 2025-08-15 07:39 | ECHO_ITS ---
Patient Info Name: Jean Fry Age: 74 years : 1950 Gender: Male Ht: 69 in Wt: 210 lbs BSA: 2.17 m2 HR: 89 bpm BP: 177 / 100 mmHg Technical Quality: Good Exam Date: 08/15/2025 8:14 AM Patient Status: O Admit Date: 08/15/2025 Exam Type: CA echo dop color flow w con Complete two-dimensional, color flow and Doppler transthoracic echocardiogram is performed with contrast to opacify the left ventricle and to improve the deliniation of the left ventricle endocardial borders. Staff Referring Physician: Anderson Givens DO Driver'S License Examiner: Oma Holcomb Attending Provider: Anderson Givens DO Contrast/Agitated Saline Contrast/Ag. Saline: Definity Amount: 2.00 ml Summary 1. Definity contrast administered improved wall motion interpretation. 2. Left ventricular chamber dimension is normal. 3. Left ventricular systolic function is normal, estimated at 55-60. 4. There is mild concentric increased left ventricular wall thickness. 5. The left ventricular diastolic function is grade I diastolic dysfunction. 6. E/e' 12 is mildly elevated. 7. Left atrial chamber dimension is mildly enlarged. 8. There is mild aortic valve sclerosis. Left Ventricle Definity contrast administered improved wall motion interpretation. Left ventricular chamber dimension is normal. Left ventricular systolic function is normal, estimated at 55-60. There is mild concentric increased left ventricular wall thickness. The left ventricular diastolic function is grade I diastolic dysfunction. E/e' 12 is mildly elevated. Right Ventricle Right ventricular chamber dimension is normal. Right ventricular systolic function is normal and with normal TAPSE 1.8 cm. Left Atria Left atrial chamber dimension is mildly enlarged. Right Atria Right atrial chamber dimension is normal. Aortic Valve The aortic valve is trileaflet. There is mild aortic valve sclerosis. There is no aortic valve stenosis. There is no aortic valve regurgitation. Pulmonic Valve There is no pulmonic regurgitation. Mitral Valve There is no mitral valve stenosis. There is no mitral valve regurgitation. Tricuspid Valve There is no tricuspid valve regurgitation. Pericardium/Pleural There is no pericardial effusion. Inferior Vena Cava Normal inferior vena cava with >50% collapse upon inspiration consistent with normal right atrial pressure, 5 mmHg. Aorta The aortic root size at the sinus of Valsalva is normal. Left Ventricular Outflow Tract Name Value Normal LVOT 2D LVOT Diameter 2.2 cm LVOT Doppler LVOT Peak Velocity 96 cm/s LVOT Peak Gradient 4 mmHg LVOT Mean Gradient 2 mmHg LVOT VTI 23 cm LVOT Stroke Volume 87 ml LVOT CO 7.7 l/min LVOT CI 3.6 l/min/m2 Pulmonic Valve Name Value Normal RVOT Doppler RVOT Peak Velocity 76 cm/s RVOT Peak Gradient 2 mmHg PV Doppler PV Peak Velocity 112 cm/s PV Peak Gradient 5 mmHg Mitral Valve Name Value Normal MV Diastolic Function MV E Peak Velocity 74 cm/s MV A Peak Velocity 103 cm/s MV E/A 0.7 MV Decel Time (PW) 182 ms MV Annular TDI MV E/e' (Septal) 14.0 MV E/e' (Lateral) 11.1 MV E/e' (Average) 12.6 Tricuspid Valve Name Value Normal Estimated PAP/RSVP RA Pressure 5 mmHg <=5 Aortic Valve Name Value Normal AV Doppler AV Peak Velocity 122 cm/s AV Peak Gradient 6 mmHg AV Area (Cont Eq Paulie) 2.9 cm2 AV DI (Paulie) 0.79 AV Regurgitation 2D LVOT Area 3.7 cm2 Ventricles Name Value Normal LV Dimensions 2D/MM IVS Diastolic Thickness (2D) 1.1 cm 0.6-1.0 LVID Diastole (2D) 4.1 cm 4.2-5.8 LVIW Diastolic Thickness (2D) 1.0 cm 0.6-1.0 LVID Systole (2D) 2.8 cm 2.5-4.0 LVOT Diameter 2.2 cm LV Mass (2D Cubed) 145.73 g 88.00-224.00 LV Mass Index (2D Cubed) 67 g/m2 49-115 Relative Wall Thickness (2D) 0.51 <=0.42 LV Fractional Shortening/Ejection Fraction 2D/MM LV Fractional Shortening (2D) 31 % 25-43 LV EF (2D Teichholz) 59 % LV Diastolic Volume (4C MOD) 92 ml LV EF (4C MOD) 43 % LV Diastolic Volume (2C MOD) 91 ml LV EF (2C MOD) 45 % LV Diastolic Volume (BP MOD) 93 ml 62-150 LV Diastolic Volume Index (BP MOD) 43 ml/m2 34-74 LV Systolic Volume (BP MOD) 52 ml 21-61 LV Systolic Volume Index (BP MOD) 24 ml/m2 11-31 LV EF (BP MOD) 45 % 52-72 LV Diastolic Length (4C) 8.3 cm LV Systolic Length (4C) 8.1 cm LV Stroke Volume (4C MOD) 40 ml Atria Name Value Normal LA Dimensions LA Volume (4C A-L) 67 ml LA Volume (BP A-L) 72 ml RA Dimensions RA Area (4C) 12.5 cm2 <=18.0 Report Signatures
[2025-08-15] MEDS: PERFLUTREN LIPID MICROSPHERES 1.5 ML VIAL DILUTED TO 10 ML TOTAL VOLUME IV PUSH (09:05)
--- NOTE | 2025-08-15 09:05 | IVDEFINITY ---
Prior to administration of IV Definity the patient was educated on the risks and benefits of the imaging enhancing agent including potential adverse side effects. The patient verbalized understanding. Allergies were verified. No exclusion criteria were identified and at least one of the following inclusion criteria were met: 1) physician request, 2) patient technically difficult to image (per the [place] [employer] guidelines of two or more segments not discernable within the apical view), or 3) questionable left ventricular function. ?
== END 2025-08-15 07:35 | disposition home or self-care (01) ==
LOC: ANHCARD 07:35
PROVIDERS: PCP Family Medicine; Visit Provider Internal Medicine Cardiovascular Disease
DX: Z01.810 Encounter for preprocedural cardiovascular examination (principal); R94.39 Abnormal result of other cardiovascular function study; R93.89 Abnormal findings on diagnostic imaging of other specified body structures; R60.0 Localized edema
CPT/HCPCS: 78452; 93017; A9502; C8929; J2785; Q9957

== ENCOUNTER 2025-09-20 02:35 | Day surgery (SDC) | payer MEDICARE, BC, SELFPAY ==
--- OUTSIDE RECORDS SUMMARY | 2010-10-22 09:00 | XMS_ITS | Continuity of Care Document ---
Author Organization [facility] Address [address] [place] [address] Phone Care Team Providers Care Glazing Superintendent Name Role Phone Juarez Jacobo Unavailable Unavailable Procedures Procedure Date Office/outpatient Visit, Est Eye Exam Established Pt Ophthalmoscopy, Subsequent Ophthalmoscopy, Subsequent Post-op Follow-up Visit Post-op Follow-up Visit Remove Cataract, Insert Lens Treatment Of Retinal Lesion Treatment Of Retinal Lesion Cataract Kit [facility] [employer] Office/outpatient Visit, Est [facility] Eye Exam & Treatment Ophthalmoscopy Ophthalmoscopy Optic Nerve Topography Optic Nerve Topography Eye Exam, New Patient Advance Directives Directive Yes / No Effective Date File Name No Information Encounters Encounter Description Practice Location Reason(s) For Visit Diagnoses Date Provider Providers Copied on Encounter Office/outpat ient Visit, Est [facility], [address], [place], [place], [id number], [place] tel:[phone] [facility] No Information 0 Odalis Pizarro. [address] , [address], [place], [address], [place]. tel:[phone] Referring Provider: [address], [place], [address]. tel:[phone] [facility], [address], [place], [place], [address], [place] tel:[phone] [facility] No Information Nov-0 8-201 0 Samina Ramirez. [address], [place], [facility], [place]. tel:[phone] Referring Provider: James Williamson, [address], [place], [facility]. tel:[phone] [facility], [address], [place], [place], [id number], [place] tel:[phone] [facility] No Information Aug-1 1-201 0 Doisy Edward. [address], [place], [place], [facility], . tel:[phone] [facility], [address], [place], [place], [address], [place] tel:[phone] [facility] No Information Aug-0 6-201 0 Jernigan OD Ed. [address] , [address], [place], [facility], [place]. tel:[phone] [facility], [address], [place], [place], [address], [place] tel:[phone] [facility] No Information Aug-0 5-201 0 Doisy Edward. [address], [place], [facility], [place]. tel:[phone] Referring Provider: El Parker, [address] [place], [address]. tel:[phone] [facility], [address], [place], [place], [address], [place] tel:[phone] [facility] No Information Aug-0 2-201 0 Samina Ramirez. [address] [place], [address], [place]. tel:[phone] Referring Provider: James Williamson, [address] [place], [address]. tel:[phone] [facility], [address], [place], [place], [address], [place] tel:[phone] [facility] No Information 2 6-201 0 Samina Ramirez. [address], [facility], [place]. tel:[phone] Office/outpat ient Visit, [facility], [address], [place], [place], [address], [place] tel:[phone] [facility] No Information May-2 2-201 0 Odalis Pizarro. [address] [place], [place] [address], [place], [facility], [place]. tel:[phone] Referring Provider: Juarez Del Rio, [facility] [address], [place], [facility]. tel:[phone] [facility], [address] [place] [address] [address], [place], [place], [address], [place] tel:[phone] [facility] No Information 9-201 0 Samina Ramirez. [address], [facility], [place]. tel:[phone] Referring Provider: Rey aguayo, [address], [place], [address]. tel:[phone] [facility], [address], [place], [place], [address], [place] tel:[phone] [facility] No Information Apr- 8-201 0 Stephanie Le. [facility], [place], [facility], [place]. tel:[phone] Referring Provider: Ed Parker OD, [address] [place], [address]. tel:[phone] Family History Family Member Type Diagnosis Age At Onset No Information Payers Payer name Insurance type Covered green party ID Christian ramirez(s) [facility] CI [id number] Mail Handlers Benefit Plan CI [id number] Social History Type Description Quantity Date Captured Comments Sex Male Smoking Status No Information Chief Complaint And Reason For Visit No Information Reason For Referral Reason For Referral No Information History Of Present Illness Encounter Date Complaint History Of Prese nt Illness No Information Functional Status Date Functional Assessmen t No Information Instructions Date Instruction Additional Infor mation No Information Assessments Type Assessment Date No Information Patient Care Teams Name Effective Dates (start - stop) Status Members No Information
[2025-09-19 14:48] VITALS: BMI 24.2
[2025-09-20] VITALS (16 sets, daily range): BP systolic 118–191; BP diastolic 71–87; PULSE 72–89; RESP 12–21; TEMP 36.4–36.6; O2SAT 93–100; BMI 32.5
[2025-09-20 10:29] LABS: Hematocrit 41.3 % (42.0-52.0); Hemoglobin 13.8 g/dL (14.0-18.0); Immature Granulocyte Percent A 0.4 % (0-0.5); Lymphocytes Absolute Auto 1.55 K/mm3 (0.9-3.2); Mean Corpuscular HGB Conc 33.4 g/dl (32-36); Mean Corpuscular Hemoglobin 29.0 pg (26-34); Mean Corpuscular Volume 86.8 fl (80-100); Nucleated Red Blood Cells Absolute Auto 0.000 K/mm3 (0.0-0.012); Nucleated Red Blood Cells Perc 0.0 % (0.0-0.2); Platelet Count Result 159 k/mm3 (150-375); Red Blood Count 4.76 M/mm3 (4.6-6.20); White Blood Count 7.5 K/mm3 (4.5-10.0)
--- NOTE | 2025-09-20 10:40 | WPDHPUPDATE1 ---
History and Physical Update Update Date/Time: 09/20/25 10:40 History and Physical has been reviewed, including an updated exam of the patient. There are NO changes in the patient's condition. Risks, benefits, and alternatives have been discussed and questions answered. Patient agrees to proceed with procedure.
--- NOTE | 2025-09-20 10:41 | WPDMODSED ---
Moderate Sedation Note-Pt Data Patient Data Allergies Allergy/AdvReac Type Severity Reaction Status Date / Time lisinopril Allergy Unknown cough Verified 09/20/25 10:08 Home Medications ?Medication ?Instructions ?Recorded ?Confirmed ?Type lancets 33 gauge (UlisesTouch Delica #100 ea 07/01/20 08/24/25 Rx Plus Lancet) aspirin 81 mg tablet,delayed 81 mg PO DAILY 03/04/21 09/20/25 History release insulin glargine 100 unit/mL (3 See Rx Instructions subcut 11/02/24 09/19/25 Rx mL) subcutaneous pen (Basaglar .COMPLEX #90 mL KwikPen U-100 Insulin) travoprost 0.004 % eye drops 1 drp EACH EYE QPM 12/05/24 09/19/25 History metformin 500 mg tablet See Rx Instructions .Route 05/21/25 09/19/25 Rx .COMPLEX #360 tabs pen needle, diabetic 31 gauge x #200 ea 05/21/25 08/24/25 Rx 5/16 (1st Tier Unifine Pentips) Ozempic 2 mg/dose (8 mg/3 mL) 2 mg (0.75 mL) subcut WEEKLY #9 mL 06/05/25 09/19/25 Rx subcutaneous pen injector (semaglutide) telmisartan 80 mg tablet 80 mg PO DAILY #90 tabs 07/16/25 09/20/25 Rx simvastatin 40 mg tablet See Rx Instructions .Route 09/17/25 09/20/25 Rx .COMPLEX #90 tabs Current Medications: Active Medications Sodium Chloride (Normal Saline Iv) 500 mls @ 100 mls/hr IV CONT .Q5H DASIA Sedation/Anesthesia: No previous sedation/anesthesia problems (including family history). [facility] Past Medical History Medical History COVID nov 2022 Iron deficiency anemia Family History Family History Mother Family history of cardiovascular disease Acute myocardial infarction Father Family history of throat cancer Other Diabetes mellitus Social History Social History (Updated 07/09/25 @ 09:20 by Lynn Cortes MA) Smoking status: Never smoker Second hand tobacco smoke exposure: No Alcohol intake: never Substance use: never Substance use type: does not use Do You Feel Safe in your Home?: Yes Lack of Transportation: No Lack of Food: Never True Current Housing: I Have Housing Concerned About Future Housing: No Difficulty Paying Gas/Electric Bills: No Difficulty Paying for Meds: No Currently Unemployed: No Education: Trade/Vocational Certificate Difficulty w/ Childcare or Family Care: No Living arrangements: with family Occupation/Education: retired Gender identity (if verbalized by the patient): Male Spiritual care concerns: No Mod Sed Physical Exam Physical Exam Pre Procedural Exam: Normal: Lungs, Heart Size, Heart Rate and Heart Rhythm Hours since solid foods: 12 Hours since liquid intake: 12 Mallampati Classification: class III Internal Medicine - PN: Obj Da Vital Signs Vital Signs: Vital Signs - 24 hr 09/20/25 10:10 Temperature 36.4 C L Pulse Rate 89 Respiratory Rate 12 Blood Pressure 191/83 H Pulse Oximetry 98 Oxygen Delivery Room Air Meds/Results Medications: Active Medications Generic Name Dose Route Start Last Admin Trade Name Freq PRN Reason Stop Dose Admin Sodium Chloride 500 mls @ 100 mls/hr 09/20/25 10:00 Normal Saline Iv IV CONT .Q5H DASIA Labs 09/20/25 10:24 09/20/25 10:24 Labs: Laboratory Results - last 24 hr 09/20/25 10:24 WBC 7.5 RBC 4.76 Hgb 13.8 L Hct 41.3 L MCV 86.8 MCH 29.0 MCHC 33.4 RDW 13.1 Plt Count 159 MPV 9.9 Immature Gran % (Auto) 0.4 Neut % (Auto) 65.9 Lymph % (Auto) 20.6 [place] % (Auto) 9.8 H Eos % (Auto) 2.5 Baso % (Auto) 0.8 Lymph # (Auto) 1.55 [place] # (Auto) 0.7 H Eos # (Auto) 0.2 Baso # (Auto) 0.1 Abs Immat Gran (auto) 0.03 Absolute Neuts (auto) 5.0 Absolute Nucleated RBC 0.000 Nucleated RBC % 0.0 ASA Classification/Sedation ASA Classification/Sedation ASA Class: III Emergent: No Risks: Risks, benefits and alternatives explained and patient/family accepted plan for sedation. Patient re-evaluated immediately prior to sedation.
[2025-09-20 10:53] LABS: Anion Gap 11 mmol/L (4-12); Blood Urea Nitrogen 21 mg/dL (9-20); Calcium 9.1 mg/dL (8.4-10.2); Carbon Dioxide 19 mmol/L (22-30); Chloride 108 mmol/L (98-107); Estimated CRCL calculation 54 ml/min; Estimated Glomerular Filt Rate 58; Glucose 97 mg/dL (65-110); Potassium 4.4 mmol/L (3.4-5.0); Sodium 138 mmol/L (137-145)
--- NOTE | 2025-09-20 11:42 | WPDCARDPROC ---
Cardiac Cath Procedure Note Date of procedure:: 09/20/25 Performing physician:: CATHETERIZATION LABORATORY REPORT Procedure Date:09/20/2025 Referring Physician: Dr. Givens Anesthesia: Versed and Fentanyl were ordered and given in my presence at 1124, procedure ended at 1138. Supervision of nurse, Susan Broderick monitored moderate sedation with 2mg Versed and 200mcg Fentanyl was provided for 14 minutes. Pre-op Diagnosis: Abnormal stress test Post-op Diagnosis: Abnormal stress test Procedure(s): Left heart catheterization with coronary angiography Access Site: Right radial artery Brief History and Clinical Indications: 75-year-old man with insulin-dependent diabetes, hypertension, and hyperlipidemia who was found to have an abnormal nuclear stress test for which a cardiac catheterization with possible PCI had been recommended. All risks, benefits and alternatives to left heart catheterization with or without percutaneous coronary intervention was discussed at length with the patient. Risk of complications including but not limited to bleeding, infection, arrhythmia, stroke, worsening kidney function, blood loss, groin hematoma, limb loss, emergency coronary artery bypass grafting, and even were discussed with the patient and all questions were answered. The patient understood and wished to proceed. Time out called, patient name, date of , medical record number, allergies, procedure performed, identify [employer], patient and staff member concurred with accurate data, procedure carried on. Findings: LEFT HEART CATHETERIZATION FINDINGS: 1. Left main: The left main coronary artery in its distal body has 70% stenosis. 2. Left anterior descending: The LAD gives off 1 large diagonal branch that has 20-30% stenosis in its midbody. There is a heavily calcified 99% subtotal occlusion of the mid LAD. 3. Left circumflex: The left circumflex artery gives off 2 OM branches. The OM1 in its ostial to proximal body has 20-30% stenosis. OM2 has luminal irregularities. 4. Right coronary artery: The RCA has mild luminal irregularities without any significant obstructive angiographic disease. The RCA is the dominant vessel. 5. Left ventricle: A. End-diastolic pressure 26 mmHg. B. LV gram deferred. C. No significant gradient across aortic valve on catheter pullback. 6. Opening AO pressure 153/92 and closing AO pressure 173/77 Description of Procedure: Informed consent signed and placed in the chart. Patient transferred to construction craft laborer room. Prepped and draped in usual sterile fashion. 2% lidocaine injected subcutaneously in right wrist area. 22-gauge venipuncture catheter used to access the right radial artery with the Seldinger technique. 6-FR slender sheath placed in right radial artery. Nitroglycerin 200mcg, Verapamil 2.5mg, and Heparin 5000U was given intraarterial through the sheath. J wire advanced under fluoroscopy however kept taking a branch vessel and was switched out over a 5F TIG diagnostic catheter for a wholey wire. The 5F TIG diagnostic catheter was used to engage the LMCA and RCA as well as cross into the left ventricle for LVEDP and aortic valve gradient measurements. Multiple orthogonal angiogram obtained and reviewed. Hemostasis was achieved by application of TR band. 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 Post Operative Condition: Stable No significant blood loss Disposition: The patient is asymptomatic. Home Plan: The patient will be monitored in the recovery area. The above findings were discussed with the referring physician. Continue aggressive medical therapy and risk factor modification. CT surgery consultation for CABG David [facility] Interventional Cardiology
== END 2025-09-20 15:10 | disposition home or self-care (01) ==
PROVIDERS: PCP Family Medicine; Visit Provider Internal Medicine
PROC: 4A023N7 Measurement of Cardiac Sampling and Pressure, Left Heart, Percutaneous Approach (ICD-10-PCS; CPT 93452; principal; 2025-09-20 11:30)
DX: I25.10 Atherosclerotic heart disease of native coronary artery without angina pectoris (principal); R94.39 Abnormal result of other cardiovascular function study; E11.9 Type 2 diabetes mellitus without complications; I10 Essential (primary) hypertension; E78.5 Hyperlipidemia, unspecified; Z79.4 Long term (current) use of insulin; Z79.85 Long-term (current) use of injectable non-insulin antidiabetic drugs
CPT/HCPCS: 36415; 80048; 85025; 93458; C1769; C1887; C1894; J1644; J2003; J2250; J2305; J3010; J7040

== ENCOUNTER 2025-11-23 10:30 | Emergency (ER) | payer MEDICARE, BC, SELFPAY ==
[2025-11-23 10:42] VITALS: BP 147/65; PULSE 86; RESP 16; TEMP 36.6; O2SAT 98
--- NOTE | 2025-11-23 10:45 | ED.URI ---
HPI - URI/Sore Throat General Chief Complaint: Upper Respiratory Infection Stated Complaint: Sinus Source: patient Mode of arrival: ambulatory Limitations: no limitations History of Present Illness HPI Narrative: This is a 75 y/o male patient that presents to the urgent care with reports of cough, sinus congestion, chills, body aches for the last 3 days. patient denies any chest pain, shortness of breath, headache, dizziness, Nausea, vomiting, dizziness, or distress. patient has not taken any OTC medication for symptoms management. MD elicited complaint: fever, cough and nasal congestion Onset (ago): day(s) (3) Consistency: constant Severity: mild Description of mucous: clear Able to tolerate fluids by mouth: Yes Exacerbating factors: nothing Relieving factors: nothing Context: sick contacts Associated symptoms: denies other symptoms Treatments prior to arrival: none Related Data Home Medications ?Medication ?Instructions ?Recorded ?Confirmed ?Last Taken ?Type travoprost 0.004 % eye drops 1 drp EACH EYE QPM 12/05/24 11/19/25 09/18/25 History famotidine 20 mg tablet (Pepcid) 20 mg PO DAILY 10/30/25 11/19/25 Unknown History acetaminophen 325 mg capsule 650 mg PO Q6H PRN 11/09/25 11/19/25 Unknown History colchicine 0.6 mg tablet mg PO 11/09/25 11/19/25 Unknown History aspirin 325 mg tablet 81 mg PO DAILY 11/19/25 11/19/25 Unknown History Allergies Allergy/AdvReac Type Severity Reaction Status Date / Time lisinopril Allergy Unknown cough Verified 11/23/25 10:33 Review of Systems Review of Systems: All systems reviewed & are unremarkable except as noted in HPI and below PMFSH Past Medical History Medical History COVID nov 2022 Iron deficiency anemia Surgical History Surgical History History of coronary artery bypass graft x 3 Family History Family History Mother Family history of cardiovascular disease Acute myocardial infarction Father Family history of throat cancer Other Diabetes mellitus Social History Social History Smoking status: Never smoker Second hand tobacco smoke exposure: No Alcohol intake: never Substance use: never Substance use type: does not use Lack of Transportation: No Lack of Food: Never True Current Housing: I Have Housing Concerned About Future Housing: No Difficulty Paying Gas/Electric Bills: No Difficulty Paying for Meds: No Currently Unemployed: No Education: Trade/Vocational Certificate Difficulty w/ Childcare or Family Care: No Living arrangements: with family Occupation/Education: retired Gender identity (if verbalized by the patient): Male Spiritual care concerns: No Exam Const: General: ill appearing Nutritional Appearance: well nourished Orientation/consciousness: patient oriented x3 Limitations: no limitations HENMT: Head: normal to inspection Ears: external ears normal Face/Nose/Sinus: Nasal discharge present clear Face and sinus: sinus tenderness maxillary Mouth: Yes Normal oral and palatal mucosa present Teeth and gingiva: dentition normal Throat: posterior oropharynx normal Eyes: Conjunctivae: conjunctivae normal Pupils: Equal, round and reactive pupils present EOM: EOMs intact bilaterally Neck: Neck: normal visual inspection Resp: Effort & Inspection: normal respiratory effort Auscultation: clear to auscultation bilaterally Cardio: Rate: regular rate Rhythm: regular rhythm Heart sounds: Murmur heart sound present GI: GI Palp: Yes Soft to palpation Auscultation: normal bowel sounds Skin: General skin exam: normal color Rashes: no rashes Wounds: no wounds Neuro: General: patient oriented x3 Cranial nerves: Yes Nystagmus not present Speech: normal speech Gait exam (Neuro): Normal gait present Extrem: General: normal to inspection and no clubbing, cyanosis or edema Psych: Mental Status: mental status grossly normal Affect: normal affect Attitude: cooperative Course Course Emergency Course: This is a 75 y/o male patient that presents to the urgent care with reports of cough, sinus congestion, chills, body aches for the last 3 days. patient denies any chest pain, shortness of breath, headache, dizziness, Nausea, vomiting, dizziness, or distress. patient has not taken any OTC medication for symptoms management. vital signs stable COVID, Influenza testing ordered COVID 19 positive, influenza negative. Educated on COVID 19 positive. discussed treatment and managment outpatient. patient educated on being contagious. Educated on follow up and when to present to the ER. answered questions to satisfaction, agreeable to plan. educated patient to Increase fluids Rest You ARE? contagious, please avoid? public places, immune compromise, elderly and younger patients. Continue with symptomatic management: -? Cough medication per package instructions -? Tylenol and motrin for fever and pain -? Cough drops for sore throat and cough -? Mucinex for congestion -? Vicks vapor rub -? Cool mist vaporizer Follow up with your primary MD in the next 2-3 days for further exam or Present to the ER for any worrisome sign or symptom patient denies any further needs or concerns to be addressed prior to discharge Level of Care: Express Care Visit Vital Signs Vital signs: Vital Signs Temperature 97.9 F 11/23/25 10:42 Pulse Rate 86 11/23/25 10:42 Respiratory Rate 16 11/23/25 10:42 Blood Pressure 147/65 H 11/23/25 10:42 Pulse Oximetry 98 11/23/25 10:42 Oxygen Delivery Room Air 11/23/25 10:42 Temperature 97.9 F 11/23/25 10:42 Pulse Rate 86 11/23/25 10:42 Respiratory Rate 16 11/23/25 10:42 Blood Pressure 147/65 H 11/23/25 10:42 Pulse Oximetry 98 11/23/25 10:42 Oxygen Delivery Room Air 11/23/25 10:42 [facility] MDM Narrative Medical decision making narrative: This is a 75 y/o male patient that presents to the urgent care with reports of cough, sinus congestion, chills, body aches for the last 3 days. patient denies any chest pain, shortness of breath, headache, dizziness, Nausea, vomiting, dizziness, or distress. patient has not taken any OTC medication for symptoms management. vital signs stable COVID, Influenza testing ordered COVID 19 positive, influenza negative. Educated on COVID 19 positive. discussed treatment and managment outpatient. patient educated on being contagious. Educated on follow up and when to present to the ER. answered questions to satisfaction, agreeable to plan. educated patient to Increase fluids Rest You ARE? contagious, please avoid? public places, immune compromise, elderly and younger patients. Continue with symptomatic management: -? Cough medication per package instructions -? Tylenol and motrin for fever and pain -? Cough drops for sore throat and cough -? Mucinex for congestion -? Vicks vapor rub -? Cool mist vaporizer Follow up with your primary MD in the next 2-3 days for further exam or Present to the ER for any worrisome sign or symptom patient denies any further needs or concerns to be addressed prior to discharge Differential Diagnosis Differential Diagnosis: covid 19, influenza, sinusitis Medical Records I have reviewed the following patient records and this information was taken into consideration when formulating the assessment and plan.: previous labs and previous clinic visits Lab Data MDM Lab Attestation statement: I personally reviewed the patient's lab results. Lab results narrative: COVID-19 positive Influenza a and B negative Discharge Plan Discharge Clinical Impression: COVID-19 Patient Disposition: Home Condition: Stable Instructions: COVID-19 (Coronavirus Disease 2019) (ED) Additional Instructions: Increase fluids Rest You ARE? contagious, please avoid? public places, immune compromise, elderly and younger patients. Continue with symptomatic management: -? Cough medication per package instructions - Coricidin HBP -? Tylenol and motrin for fever and pain -? Cough drops for sore throat and cough -? Mucinex for congestion -? Vicks vapor rub -? Cool mist vaporizer Follow up with your primary MD in the next 2-3 days for further exam or Present to the ER for any worrisome sign or symptom Patient Language: Faroese Prescriptions: No Action travoprost 0.004 % drops 1 drp EACH EYE QPM Glucagon Emergency Kit (human) 1 mg recon soln 1 mg subcut Q20M PRN (Reason: hypoglycemia) Qty: 1 1RF Rx Instructions: until target blood sugar attained losartan 50 mg tablet 50 mg PO DAILY Qty: 30 5RF amiodarone 200 mg tablet 200 mg PO DAILY Qty: 30 5RF metoprolol succinate 25 mg tablet extended release 24 hr 25 mg PO BID Qty: 60 5RF simvastatin 40 mg tablet See Rx Instructions .ROUTE .COMPLEX Qty: 90 1RF Dose Instruction: TAKE 1 TABLET BY MOUTH DAILY Rx Instructions: TAKE 1 TABLET BY MOUTH DAILY colchicine 0.6 mg tablet PO acetaminophen 325 mg capsule 650 mg PO Q6H PRN insulin glargine [Basaglar KwikPen U-100 Insulin] 100 unit/mL (3 mL) insulin pen See Rx Instructions subcut .COMPLEX Qty: 90 1RF Rx Instructions: 40 units bid; he is going to wean nighttime dose by 20% every week, based on fasting blood sugar goal of 70-130. (DME) lancets [OneTouch Delica Plus Lancet] 33 gauge misc See Rx Instructions .ROUTE .MEDSUPPLY Qty: 100 3RF Rx Instructions: As directed (DME) pen needle, diabetic [1st Tier Unifine Pentips] 31 gauge x 5/16 needle See Rx Instructions .Route Qty: 200 2RF Rx Instructions: Use twice daily Ozempic 2 mg/dose (8 mg/3 mL) pen injector 2 mg subcut WEEKLY Qty: 9 3RF famotidine [Pepcid] 20 mg tablet 20 mg PO DAILY metformin 500 mg tablet 1,000 mg PO BID Qty: 360 1RF aspirin 325 mg tablet 81 mg PO DAILY (DME) blood sugar diagnostic Strip See Rx Instructions .Route Qty: 100 2RF Rx Instructions: Fasting in the am and as needed when feeling symptoms of high or low blood sugar. (DME) blood-glucose meter Kit See Rx Instructions .Route Qty: 1 0RF Rx Instructions: As directed Follow-up/Referrals: Angelica Pandya MD [Primary Care Provider, Family Practice] Time of Disposition: 10:53
[2025-11-23 11:08] LABS: EDCOVIDSCREEN Positive (Negative); EDINFLUASCREEN Negative (Negative); EDINFLUBSCREEN Negative (Negative)
== END 2025-11-23 11:02 | disposition home or self-care (01) ==
PROVIDERS: Emergency Provider Nurse Practitioner Family; PCP Family Medicine
DX: U07.1 COVID-19 (principal)
CPT/HCPCS: 87426; 87804; 99212; G0463